=== PATIENT | female | born 1960 | race Caucasian/White ===

== ENCOUNTER 2016-10-14 15:03 | Outpatient (CLI) | END 2016-10-14 15:04 | disposition home or self-care (01) ==

== ENCOUNTER 2016-10-19 14:11 | Outpatient (CLI) | payer MEDICARE | END 2016-10-19 14:12 | disposition home or self-care (01) | DX: R80.9 Proteinuria, unspecified (principal); R82.90 Unspecified abnormal findings in urine ==